=== PATIENT | female | born 1955 | race Caucasian/White ===

== ENCOUNTER → 2023-11-20 06:33 | Outpatient (REF) | payer MEDICARE, OTHER, SELFPAY ==
[2023-11-20] MEDS: LEXISCAN 0.400000000000000022 MG IV (08:40)
[2023-11-20] MEDS: FLUSH (NSS) 1 FLUSH IV (08:45)
== END ==
LOC: RCS 06:33
PROVIDERS: ATTENDING PHYSICIAN Internal Medicine Cardiovascular Disease; FAMILY PHYSICIAN Family Medicine
DX: R00.2 Palpitations (principal); R06.02 Shortness of breath; Z01.818 Encounter for other preprocedural examination
CPT/HCPCS: 78452; 93017; A9500; J2785

== ENCOUNTER → 2023-11-22 09:36 | Outpatient (REF) | payer MEDICARE, OTHER, SELFPAY | LOC: RAD 09:36 | PROVIDERS: ATTENDING PHYSICIAN Orthopaedic Surgery Hand Surgery; FAMILY PHYSICIAN Family Medicine | DX: M25.512 Pain in left shoulder (principal) | CPT/HCPCS: 76881 ==

== ENCOUNTER 2023-12-06 06:02 | Inpatient (IN) | payer MEDICARE, OTHER, SELFPAY ==
--- NOTE | 2023-11-01 11:14 | CM ---
Patient is scheduled for an elective L TKR on 12/06/23. Spoke with patient prior to surgery via telephone. Introduced role of Orthopedic Navigator. Patient reports that she lives with her in a multi story home. There are five steps to enter
and a flight of steps to the second floor. There is a powder room on the entry level manager. She currently functions independently and uses a cane. She also occasionally uses a rolling walker. She also has a shower seat. She has never had VN services. PCP
is Dr. Buenrostro.
Discussed orthopedic program and post surgical plans. Reviewed anticipated length of stay and that goal is for her to return home at discharge. Also reviewed outpatient PT. Patient is in agreement with tentative plan and will go directly to
outpatient PT at [facility]. She will have support from her when she goes home. She plans to stay on the first floor after surgery.
Patient will complete online education.
Plan: Orthopedic Navigator will remain available to assist with the care of patient and will reassess discharge needs after surgery.
[2023-11-13 13:59] VITALS: BMI 24.2
[2023-11-13 14:35] VITALS: BMI 24.2
[2023-11-13 14:35] LABS: Hematocrit 35.8 % (37.0-47.0); Hemoglobin 11.9 g/dL (12.0-16.0); Mean Corp Hgb Conc. 33.2 g/dL (33.0-37.0); Mean Corpuscular Hgb 29.5 pg (27.0-31.0); Mean Corpuscular Volume 88.8 fL (81.0-99.0); Mean Platelet Volume 10.8 fL (7.4-10.4); Platelet Count 258 10^3/uL (130-400); Red Blood Cell Count 4.03 10^6/uL (4.20-5.40); Red Cell Dist. Width 12.6 % (11.5-14.5); White Blood Cell Count 8.4 10^3/uL (4.8-10.8)
[2023-11-13 14:49] LABS: Glycohemoglobin (HgbA1c) 5.8 % (4.0-5.6)
[2023-11-13 14:55] LABS: ALT (SGPT) < 10 U/L (0-35); AST (SGOT) 20 U/L (14-36); Albumin 3.9 g/dl (3.5-5.0); Alkaline Phosphatase 62 U/L (38-126); Blood Urea Nitrogen 9 mg/dl (7-17); Calcium 9.5 mg/dl (8.4-10.2); Carbon Dioxide 29 mmol/L (22-30); Chloride 98 mmol/L (98-107); Estimated Creatinine Clearance 70 ml/min; Glucose 114 mg/dl (70-99); Potassium 4.2 mmol/L (3.5-5.1); Sodium 135 mmol/L (135-145); Total Bilirubin 0.3 mg/dl (0.2-1.3); Total Protein 6.3 g/dl (6.3-8.2); eGFR > 60.00
[2023-12-06] VITALS (16 sets, daily range): BP systolic 97–160; BP diastolic 44–93; PULSE 67; O2SAT 97; BMI 24.0
[2023-12-06] MEDS: CELEBREX 200 MG PO (06:32)
[2023-12-06] MEDS: TYLENOL 650 MG PO ×4 (06:32→20:48)
[2023-12-06] MEDS: NORMOSOL-R 1000 IV ×2 (06:35→10:53)
--- NOTE | 2023-12-06 09:22 | OR.RPT ---
Operative Report
Operative Report
Orthopaedic Surgery Operative Note
DATE OF OPERATION: 12/06/2023
PREOPERATIVE DIAGNOSES: Osteoarthritis, left knee.
POSTOPERATIVE DIAGNOSES: Osteoarthritis, left knee.
OPERATION PERFORMED: Left total knee arthroplasty.
SURGEON: Aaron Butterfield MD
ASSISTANTS: Le Campos PA-C who assisted with patient and limb positioning and retraction
ANESTHESIA: Spinal
COMPLICATIONS: None.
ESTIMATED BLOOD LOSS: 20mL
DRAINS: None
TOURNIQUET TIME: 44 minutes.
IMPLANTS:
- Moriah Persona CR Femur, size 7
- Moriah Persona tibia base plate, size C
- Moriah Persona ultracongruent articular surface, 10 mm
INDICATIONS: The patient presented to my office with debilitating left knee pain due to osteoarthritis. We reviewed the natural history of this problem, as well as the risks, benefits, and alternatives of various treatment options. The patient
exhausted all nonoperative treatment options and wished to proceed with knee replacement surgery. The patient understood the risks which included, but were not limited to, bleeding, infection, failure to relieve pain, more pain than preop, damage to
blood vessels and nerves, need for reoperation, mechanical failure of the implants, wound healing problems, stiffness, instability, blood clot, pulmonary embolism, myocardial infarction, pneumonia, arrhythmia, CVA, and . The patient accepted
these risks and wished to proceed. All questions were answered, and informed consent was obtained.
PROCEDURE IN DETAIL: The patient was identified in the preoperative holding area. The left knee was identified as the operative site. The patient was taken in the operating room and placed in a supine position on the operating table. Spinal
anesthesia was performed. IV antibiotics and tranexamic acid were administered. A bump was placed under the left hemipelvis. A well-padded tourniquet was placed on the proximal thigh. All bony prominences were well padded. The left lower extremity
was prepped and draped in the usual sterile fashion.
We performed a surgical time-out. An interarticular block was performed with local anesthetic with epinephrine. The limb was exsanguinated with an Esmarch bandage, then the tourniquet was inflated to 250 mmHg. A midline skin incision was made
followed by a medial parapatellar arthrotomy. A subperiosteal peel was performed on the medial tibia. I excised part of the infrapatellar fat pad to improve our visualization as well as tissue over anterior femur. The patella was everted and the
knee was flexed. I excised the remnants of the anterior and posterior cruciate ligaments as well as tibial and femoral osteophytes with rongeurs.
The knee was flexed, and the extramedullary tibial cutting guide was aligned. [place] was aligned at neutral, rotation was centered on the tibial tubercle, and coronal alignment was aligned with the mechanical axis of the tibia and center of the ankle
joint. The cut height was 10mm off the lateral tibia joint surface. The guide was secured into place. The MCL and LCL were protected. The tibia surface was cut. The cut surface was inspected after removal to ensure appropriate height and slope based
on the preoperative plan. The cut was checked with a drop heather. It was centered nicely at the ankle.
A drill was used to open the femoral canal. The intramedullary distal femoral cutting guide was inserted into the femur. This was set at 5 degrees +0. This was secured into place with three pins. The cut level was checked with an joel wing. The
distal femur was cut through the cutting guide. The IM guide was reinserted to double check that the level of resection was flush and in appropriate alignment.
[place]�s line and the transepicondylar axis were marked on the femur. The femoral sizing guide was applied to the anterior femur. Pins were inserted, and the 4-in-1 cutting guide was applied and secured into place. The rotation was compared to
[place]�s line, the transepicondylar axis, and the neutral tibia cut and was found to be appropriate. The width was checked and found to be appropriate and lateralized on the femur. The anterior, posterior, and chamfur cuts were made. A lamina
demo specialist was used to open the flexion gap, and posterior osteophytes were removed with a curved osteotome. The remnant medial and lateral meniscus were also removed. I prophylactically cauterized the lateral geniculate arteries. A 10mm spacer block
was applied to the flexion gap and was noted to be balanced medially and laterally. The knee was extended, and the block showed symmetric to extension and flexion gaps.
The tibia was exposed and sized. Rotation was set in line with the tibial tubercle and congruent with the femur. The trial was secured into place with two pins. The trial femur was impacted into place, and a trial articular surface was placed. The
knee was taken through range of motion and noted to be stable throughout the arc of motion without gaping or excess tension.The patella tracked centrally throughout the arc of motion without need for further releases. No patellar full thickness
cartilage defects.
The trials were removed. The tibia keel was prepared with the punch and the drill. The bone surfaces were irrigated with sterile saline and dried. The cement was mixed in a vacuum mixer. Cement gun was used to apply cement to the tibial surface and
the undersurface of the tibial implant. Cement was pressurized into the tibial canal and tibia surface. The tibial component was impacted into place. Excess cement was removed. Cement was applied to the femoral surface and the femoral component. The
femoral component was impacted into place, and excess cement removed. A trial articular surface was inserted, and the knee was extended while the cement polymerized. The tourniquet was let down, and meticulous hemostasis was achieved. Dilute
betadine was poured into the wound and allowed to soak for 3 minutes. The knee was irrigated with copious normal saline.
Once the cement was polymerized, the trial articular surface was removed. Any excess cement was removed. The knee was trialed, and the final articular surface was selected and inserted into the tibial locking mechanism. The knee was reduced. A fresh
drape was applied to the surgical field.
The arthrotomy was closed with 0-PDS. Once closed, an interarticular block was performed with local anesthetic with epi. The deep dermal layer was closed with 2-0 PDS, and the subcuticular skin was closed with 3-0 monocryl. A Dermabond Prineo
dressing was applied to the skin in full flexion. Once this was completely dry, a sterile waterproof dressing was applied.
The anesthesia team performed an adductor canal block in the OR. The patient awoke from anesthesia without any difficulties. The sponge and instrument counts were correct x2 at the end of the case.
Dev Butterfield MD
[2023-12-06] MEDS: MORPHINE SULFATE 1 MG IV (10:10)
[2023-12-06] MEDS: ZOFRAN 4 MG IV (10:24)
[2023-12-06] MEDS: ROXICODONE 5 MG PO (10:52)
--- NOTE | 2023-12-06 11:21 | CM ---
Addendum entered by Saundra Umanzor 12/06/23 11:27:
Patient's was given outpatient PT script.
Original Note:
Reviewed chart. Patient admitted as planned for elective L TKR. Met with patient and her at bedside. Confirmed information previously obtained for assessment. Also discussed discharge plans. The plan is for patient to return home at
discharge. She will have support from her when she goes home. Patient will go directly to outpatient PT and will come to . She has an appointment scheduled for Monday, 12/07.
Patient has a rolling walker, cane and shower seat.
She will use [facility] pharmacy for discharge prescriptions.
[2023-12-06] MEDS: NON-FORMULARY ITEM 3 CAP PO ×3 (11:28→20:43)
[2023-12-06] MEDS: ULTRAM 50 MG PO (12:19)
[2023-12-06] MEDS: ROXICODONE 10 MG PO (14:09)
[2023-12-06] MEDS: ANCEF 5 IV (14:09)
[2023-12-06] MEDS: ZOFRAN ODT (ORALLY DISINTEGRATING) 4 MG PO ×2 (14:09→17:29)
[2023-12-06] MEDS: ASPIRIN 325 MG PO (17:29)
[2023-12-06] MEDS: PEPCID 20 MG PO (18:14)
[2023-12-06] MEDS: EMLA CREAM 2 GRAM TOPICAL (18:14)
[2023-12-06] MEDS: BACTROBAN 2% OINTMENT 1 APPLIC NASAL (20:42)
[2023-12-06] MEDS: TORADOL 15 MG IV (20:44)
[2023-12-06] MEDS: FLUSH (NSS) 2 FLUSH IV (20:56)
[2023-12-06] MEDS: MAALOX 30 ML PO (21:24)
[2023-12-06] MEDS: PROTONIX 40 MG PO (21:41)
[2023-12-06] MEDS: ULTRAM PO (21:41)
[2023-12-06] MEDS: ZOFRAN ODT (ORALLY DISINTEGRATING) PO (21:41)
[2023-12-06] MEDS: ANCEF IV (23:17)
[2023-12-06] MEDS: TYLENOL PO (23:51)
[2023-12-06] MEDS: NON-FORMULARY ITEM PO (23:51)
[2023-12-07] VITALS (7 sets, daily range): BP systolic 81–137; BP diastolic 48–74; PULSE 63–80; O2SAT 97–99
[2023-12-07] MEDS: MAALOX 30 ML PO (01:39)
[2023-12-07] MEDS: NON-FORMULARY ITEM PO (03:30)
[2023-12-07] MEDS: TYLENOL PO (03:30)
[2023-12-07] MEDS: NON-FORMULARY ITEM 3 CAP PO ×2 (08:35→11:55)
[2023-12-07] MEDS: BACTROBAN 2% OINTMENT 1 APPLIC NASAL (08:38)
[2023-12-07] MEDS: TYLENOL 650 MG PO ×2 (08:38→11:44)
[2023-12-07] MEDS: ZOFRAN ODT (ORALLY DISINTEGRATING) 4 MG PO (08:39)
[2023-12-07] MEDS: TORADOL 15 MG IV (08:40)
[2023-12-07] MEDS: ASPIRIN PO (08:41)
[2023-12-07] MEDS: ULTRAM PO (08:43)
--- NOTE | 2023-12-07 09:37 | PTCARENOTE ---
0925: Sandra PALACIOS, made aware of patient refusing majority of AM medications including stool softeners, aspirin, dexamethasone, tramadol, and meloxicam. Education provided to patient on importance of medications. No new orders at this time. PA
into see patient.
--- NOTE | 2023-12-07 10:50 | PTCARENOTE ---
Pt with +orthostasis and symptomatic while working with OT this am. Madai Villar made aware. Care ongoing at this time.
--- NOTE | 2023-12-07 11:39 | CM ---
Reviewed chart and held rounds with PT, OT and nursing. Patient admitted as planned for elective L TKR. Met with patient and her at bedside. Confirmed information previously obtained for assessment. Also discussed discharge plans. The plan
is for patient to return home at discharge. She will have support from her when she goes home. Patient will go directly to outpatient PT and will come to . She has an appointment scheduled for Monday, 12/07.
Patient has a rolling walker, cane and shower seat.
She will use [facility] pharmacy for discharge prescriptions.
[2023-12-07] MEDS: ZOFRAN 4 MG IV (11:44)
[2023-12-07] MEDS: DECADRON 4 MG IV (11:44)
[2023-12-07] MEDS: LOVENOX 40 MG SC (11:44)
[2023-12-07] MEDS: ProAmatine 5 MG PO (11:45)
[2023-12-07] MEDS: PROTONIX IV 40 MG IV (11:45)
[2023-12-07] MEDS: NSS (PRESERVATIVE FREE) 10 ML IV (11:45)
[2023-12-07] MEDS: NORMOSOL-R 500 IV (12:07)
--- NOTE | 2023-12-07 13:11 | W.PN.ORTHO ---
Today's Communication / Plan
-
d/c
Assessment
.
Distal Motor Intact: Yes
Dressing:
Clean, dry and intact.
Assessment:
Medication non-compliance and agitation /confusion last pm-spoke to patient--now agreeing to adhere to medication regimen as advised
GERD-increase home Dexlansoprazole while on ASA
Nausea-improved w/ Zofran
Orthostasis-improved with Midodrine and IVF-minimize opioids
Plan
.
Surgery / Date: Jade Butterfield 12/06/23
DVT Prophylaxis: Aspirin
Activity:
Out of bed.
PT/OT
Discharge Plan: Home w/ Outpatient PT
Subjective
.
.:
Patient resting comfortably.
Vital Signs and Labs
.
Vital Signs and Labs:
Lab Results
11/13/23 13:50
11/13/23 13:50
Temp Pulse Resp BP Pulse Ox
97.7 F 76 17 96/59 97
12/07/23 11:20 12/07/23 11:20 12/07/23 11:20 12/07/23 11:20 12/07/23 11:20
Non-invasive Hgb result: 11.2
Physical Exam
-
HEENT: No pallor, cyanosis, or jaundice. Throat clear.
NECK: Supple. No JVD.
RESPIRATORY: Lungs clear to auscultation.
CVS: S1, S2 normal. RRR.� No murmur, rub or gallop.
ABDOMEN: Soft, non-tender. No distension. BS+/normal.
EXTREMITIES: strength equal, no calf pain with palpation
HIGH WORKER: AOx3. No focal deficits. nursing home manager grossly intact
--- NOTE | 2023-12-07 13:22 | W.DS.TRANS ---
DC Summary - File Clerk Data Entry
-
Discharge Instructions:
Sleep Apnea Risk Low
Discharge Diagnosis/Procedures L TKA Dr. Butterfield 12/06/23
Diet As tolerated
Activity With Walker
Driving Restrictions No driving
Bathing Restrictions OK to Shower
Other Services PT
Instructions:
Stand-Alone Forms: Total Hip/Knee Replacement D/C
Changes to Home Medications: Yes
Discharge Medications:
DC Medications w/original date entered in [facility]
carbidopa ER 23.75 mg-levodopa 95 mg capsule,extended release (Rytary) 3 cap PO Q4H parkinsons disease 03/26/20
conj estrogen-medroxyprogesterone 0.625 mg-2.5 mg tablet (Prempro) 1 ea PO HS Hormonal Agent 03/26/20
propranolol 10 mg tablet 10 mg PO DAILY PRN tachycardia 03/26/20
bntiena-zzncoyoggkzrt-znqvktws 250 mg-250 mg-65 mg tablet (Excedrin Migraine) 1 tab PO DAILY PRN migraines 05/08/23
calcium carbonate 600 mg-vitamin D3 20 mcg (800 unit) chewable tablet (Caltrate 600 plus D) 1 tab PO DAILY Supplement 11/07/23
magnesium citrate 100 mg tablet 100 mg PO HS supplement 11/07/23
mupirocin 2 % topical ointment 1 applic topical BID infection prevention #1 tube 11/13/23
acetaminophen 325 mg capsule (Tylenol) 650 mg (2 x 325 mg) PO QID #2 caps 12/07/23
aspirin 325 mg tablet 325 mg PO DAILY blood clot prevention #1 tab 12/07/23
dexlansoprazole 30 mg capsule,biphase delayed release 30 mg PO BID GERD #60 caps 12/07/23
docusate sodium 100 mg capsule (Colace) 100 mg PO BID stool softner #1 cap 12/07/23
gabapentin 100 mg capsule 100 mg PO HS si dysfunction/pain/sleep #0 caps 12/07/23
hydrocodone 5 mg-acetaminophen 325 mg tablet 1 tab PO Q6H PRN 1 tab moderate pain or 2 if severe #30 tabs 12/07/23
magnesium hydroxide 400 mg/5 mL oral suspension (Milk of Magnesia) 30 ml PO HS PRN Constipation #1 mL 12/07/23
meloxicam 15 mg tablet 15 mg PO DAILY anti-inflammatory #14 tabs 12/07/23
ondansetron 4 mg disintegrating tablet 4 mg PO Q6H PRN n/v #20 tabs 12/07/23
sennosides 8.6 mg tablet (Senokot) 17.2 mg (2 x 8.6 mg) PO BID laxative #2 tabs 12/07/23
Home Medication Changes
dexlansoprazole 30 mg capsule,biphase delayed release 30 mg PO BID GERD #60 caps 12/07/23
hydrocodone 5 mg-acetaminophen 325 mg tablet 1 tab PO Q6H PRN 1 tab moderate pain or 2 if severe #30 tabs 12/07/23
meloxicam 15 mg tablet 15 mg PO DAILY anti-inflammatory #14 tabs 12/07/23
ondansetron 4 mg disintegrating tablet 4 mg PO Q6H PRN n/v #20 tabs 12/07/23
Pending Results: No
[2023-12-07] MEDS: ZOFRAN ODT (ORALLY DISINTEGRATING) PO (14:21)
== END 2023-12-07 15:42 | disposition home or self-care (01) | DRG 470 ==
LOC: 2 SOUTH 06:02
PROVIDERS: ADMITTING PHYSICIAN Orthopaedic Surgery; FAMILY PHYSICIAN Family Medicine
PROC: 0SRD0J9 Replacement of Left Knee Joint with Synthetic Substitute, Cemented, Open Approach (ICD-10-PCS; 2023-12-06)
DX: M17.12 Unilateral primary osteoarthritis, left knee (principal); I47.10 Supraventricular tachycardia, unspecified; M85.80 Other specified disorders of bone density and structure, unspecified site; G20.A1 Parkinson's disease without dyskinesia, without mention of fluctuations; R91.8 Other nonspecific abnormal finding of lung field; K21.9 Gastro-esophageal reflux disease without esophagitis; G43.909 Migraine, unspecified, not intractable, without status migrainosus; R45.1 Restlessness and agitation; R11.0 Nausea; Z88.1 Allergy status to other antibiotic agents; Z88.0 Allergy status to penicillin; Z91.148 Patient's other noncompliance with medication regimen for other reason; Z87.11 Personal history of peptic ulcer disease
CPT/HCPCS: 36415; 73560; 80053; 83036; 85027; 86850; 86900; 86901; 87070; 97110; 97116; 97162; 97166; 97530; 97535; C1713; C1776

== ENCOUNTER 2024-01-09 13:26 | Outpatient (RCR) | payer MEDICARE, OTHER, SELFPAY | END 2024-01-09 23:59 | disposition home or self-care (01) | LOC: RPT 13:26 | PROVIDERS: ATTENDING PHYSICIAN Orthopaedic Surgery Hand Surgery; FAMILY PHYSICIAN Family Medicine | DX: R26.89 Other abnormalities of gait and mobility (principal); Z96.652 Presence of left artificial knee joint; Z73.6 Limitation of activities due to disability | CPT/HCPCS: 97010; 97110; 97140; 97162; 97164 ==

== ENCOUNTER 2024-02-02 13:20 | Outpatient (RCR) | payer MEDICARE, OTHER, SELFPAY | END 2024-02-02 23:59 | disposition home or self-care (01) | LOC: RPT 13:20 | PROVIDERS: ATTENDING PHYSICIAN Orthopaedic Surgery Hand Surgery; FAMILY PHYSICIAN Family Medicine | DX: M75.112 Incomplete rotator cuff tear or rupture of left shoulder, not specified as traumatic (principal); M75.42 Impingement syndrome of left shoulder; M25.562 Pain in left knee; Z73.6 Limitation of activities due to disability | CPT/HCPCS: 97010; 97110; 97140 ==

== ENCOUNTER 2024-02-03 13:12 | Emergency (ER) | payer MEDICARE, OTHER, SELFPAY ==
[2024-02-03 13:18] VITALS: BP 122/74
--- NOTE | 2024-02-03 14:57 | ED.GENMED ---
History of Present Illness
General
Chief Complaint: Headache
Source: patient and previous radiology exam
Exam Limitations: none
Time Seen by Provider: 02/03/24 14:41
Nursing documentation reviewed up to this point in time: agreed with
Travel History
Have you had any contact with someone who has COVID-19?: No
Do you have any symptoms of coronavirus? Fever > 100 degrees, chills, cough, shortness of breath, sore throat, loss of taste or smell, muscle aches, or headache?: No
History of Present Illness
History of Present Illness:
68-year-old female Parkinson's deep brain stimulator placed [facility] painful swelling area in her left posterior neck saw her PCP yesterday total was a lymph node somewhat more painful today, no fever she has had chills,
states she feels a bit off, somewhat disoriented, she is worried there could be an issue with her deep brain stimulator was told to come in if she ever has any issues no chest pain or shortness of breath, no sore throat no other lymph node swelling
Past History
Past History
ED Past Medical History: Other (Parkinson's disease, deep brain stimulator)
ED Past Surgical History: Brain
Social History
Tobacco: Non-smoker
Alcohol: None
Drug: None
Living: with family
Employment: Retired
Review of Systems
Review of Systems
All Other Systems: Not applicable
Constitutional: Reports fatigue and chills; Denies fever
EENT: Reports no symptoms
Respiratory: Reports no symptoms
Cardiac: Reports no symptoms
ABD/GI: Reports no symptoms
: Reports no symptoms
Musculoskeletal: Reports no symptoms
Skin: Reports other (Lymph node swelling)
Neurological: Denies dizzy, headache or numbness
Psychiatric: Reports no symptoms
Phy Exam
Physical Exam
Physical Exam:
Physical Exam
General: no apparent distress, not acutely ill
Neck: Minimally tender nodes in the left occipital region
Heart: s1/s2 regular rate and rhythm, no murmur. equal radial pulses.
Lungs: no acute respiratory distress. clear bilaterally
Abdomen: Nontender
Neuro: alert and oriented. no focal neurological deficits
Skin: no rash
Psychiatric: well kept. interactive and cooperative
Extremities: no edema.
Course
Orders/Labs/Results
Orders:
Orders
02/03/24 14:53
IV Insert/Care/Rem.- Treatment PRN
02/03/24 14:54
CT Head W/o Iv Contrast Urgent
Comment:
Reason For Exam: REA DBS
02/03/24 15:09
COVID-19 Antigen Urgent
Source: Nasal Swab
Complete Blood Count/With Diff Urgent
Comprehensive Metabolic Panel Urgent
Influenza A+B Rapid Molecular Urgent
WHIT Source: Nasal Swab
Specimen Description:
Abnormal Lab Results
02/03/24
15:09
RBC 4.18 L 10^6/uL
(4.20-5.40)
MCHC 32.2 L g/dL
(33.0-37.0)
Creatinine 0.4 L mg/dL
(0.6-1.0)
Glucose 101 H mg/dl
(70-99)
02/03/24 15:09
02/03/24 15:09
Vital Signs
Initial and Last Documented VS:
Initial Vital Signs
Temp Pulse Resp BP Pulse Ox
97.6 F 80 16 122/74 98
02/03/24 13:18 02/03/24 13:18 02/03/24 13:18 02/03/24 13:18 02/03/24 13:18
Last Documented Vital Signs
Temp Pulse Resp BP Pulse Ox
97.6 F 80 16 122/74 98
02/03/24 13:18 02/03/24 13:18 02/03/24 13:18 02/03/24 13:18 02/03/24 13:18
MDM/Problems Addressed
Differential Diagnosis Includes:
Viral syndrome, lymphadenopathy, lymphadenitis, doubt any issue with her DBS
MDM/Problems Addressed:
Lymph node tenderness
Chronic conditions affecting care:
Parkinson's
Acute Exacerbation and/or Progression of Chronic Illness:
Chills
*Radiology
Radiology exam reviewed: preliminary read by ED provider
*Pulse Oximetry
Patient hypoxic: no
*Critical Care Note
Total Time (30-74mins, 75-104mins- exclusive of procedures): Not Applicable
Update Note
Update Note:
Update labs CT unremarkable
ED Attending Note
-
Portions of this chart may have been created with voice recognition software.� Occasional wrong word or��sound alike� substitutions may have occurred due to the inherent limitations of voice recognition software.
Discharge Plan
Departure
Patient Disposition: Home (Routine Discharge)
Date of Disposition: 02/03/24
Time of Disposition: 15:59
Patient with high blood pressure during this ER visit?: No
Condition: Good
Discharge Problem:
Glands swollen
Instructions: Lymphadenitis
Prescriptions:
New
doxycycline hyclate 100 mg tablet
100 mg PO BID Qty: 14 0RF
No Action
propranolol 10 MG tablet
10 mg PO DAILY PRN (Reason: tachycardia)
Prempro 1 EACH tablet
1 ea PO HS
Rytary 1 EACH capsule, extended release
3 cap PO Q4H
Excedrin Migraine 250-250-65 mg Tablet
1 tab PO DAILY PRN (Reason: migraines)
magnesium citrate 100 mg Tablet
100 mg PO HS
Caltrate 600 plus D 600 mg-20 mcg (800 unit) Tablet,Chewable
1 tab PO DAILY
mupirocin 2 % ointment
1 applic topical BID Qty: 1 0RF
Patient Comments:
Patient administered this morning 12/06/23 @ 04:45. Patien started this medication on 12/04/23 in the evening.
sennosides [Senokot] 8.6 mg tablet
17.2 mg PO BID Qty: 2 0RF
aspirin 325 mg tablet
325 mg PO DAILY Qty: 1 0RF
Rx Instructions:
Take with food
hydrocodone-acetaminophen 5-325 mg tablet
1 tab PO Q6H PRN (Reason: 1 tab moderate pain or 2 if severe) Qty: 30 0RF
Rx Instructions:
Dx orthopedic surgery
ongoing therapy
meloxicam 15 mg tablet
15 mg PO DAILY Qty: 14 0RF
Rx Instructions:
take with food
post-op
magnesium hydroxide [Milk of Magnesia] 400 mg/5 mL suspension
30 ml PO HS PRN (Reason: Constipation) Qty: 1 0RF
docusate sodium [Colace] 100 mg capsule
100 mg PO BID Qty: 1 0RF
ondansetron 4 mg tablet,disintegrating
4 mg PO Q6H PRN (Reason: n/v) Qty: 20 0RF
Rx Instructions:
take 1/2h b/f pain med if recurrent nausea
allow to dissolve in mouth w/o water
acetaminophen [Tylenol] 325 mg capsule
650 mg PO QID Qty: 2 0RF
gabapentin 100 mg Capsule
100 mg PO HS Qty: 0 0RF
dexlansoprazole 30 mg Capsule,Biphase Delayed Releas
30 mg PO BID Qty: 60 0RF
Rx Instructions:
take twice daily while on ASA
Referrals:
James Major MD [Family Provider] - Next open appointment
Interventions
Interventions:
*Risk Screen - Suicide Last Done: 02/03/24 13:18
*General Assessment Last Done: 02/03/24 13:18
*Neglect/Abuse Screening Last Done: 02/03/24 13:18
ED- Fall Risk Assessment Last Done: 02/03/24 15:17
*ED COVID-19 Vaccine History Last Done: 02/03/24 15:16
ED- Neurological Assessment Last Done: 02/03/24 15:17
Discharge Date and Time
Print Language: [place]
[2024-02-03 15:15] VITALS: BMI 21.9
[2024-02-03 15:22] LABS: % Basophils 0.4 % (0-2); % Immature Granulocytes 0.3 % (0-0.5); % Monocytes 6.9 % (1.7-9.3); % Neutrophils 62.4 % (42.2-75.2); Absolute Eosinophils 0.1 10^3/uL (0-0.7); Absolute Lymphocytes 2.2 10^3/uL (1.2-3.4); Absolute Monocytes 0.5 10^3/uL (0.1-0.6); Absolute Neutrophils 4.8 10^3/uL (1.4-6.5); Hematocrit 38.5 % (37.0-47.0); Hemoglobin 12.4 g/dL (12.0-16.0); Mean Corp Hgb Conc. 32.2 g/dL (33.0-37.0); Mean Corpuscular Hgb 29.7 pg (27.0-31.0); Mean Corpuscular Volume 92.1 fL (81.0-99.0); Mean Platelet Volume 10.1 fL (7.4-10.4); Nucleated Red Blood Cells % 0 %; Platelet Count 220 10^3/uL (130-400); Red Blood Cell Count 4.18 10^6/uL (4.20-5.40); Red Cell Dist. Width 13.2 % (11.5-14.5); White Blood Cell Count 7.7 10^3/uL (4.8-10.8)
[2024-02-03 15:36] LABS: COVID-19 Antigen Negative (Negative)
[2024-02-03 15:44] LABS: ALT (SGPT) < 10 U/L (0-35); AST (SGOT) 27 U/L (14-36); Alkaline Phosphatase 53 U/L (38-126); Blood Urea Nitrogen 12 mg/dl (7-17); Calcium 9.3 mg/dl (8.4-10.2); Carbon Dioxide 28 mmol/L (22-30); Chloride 102 mmol/L (98-107); Estimated Creatinine Clearance 71 ml/min; Glucose 101 mg/dl (70-99); Potassium 4.3 mmol/L (3.5-5.1); Sodium 135 mmol/L (135-145); Total Bilirubin 0.5 mg/dl (0.2-1.3); Total Protein 6.5 g/dl (6.3-8.2); eGFR > 60.00
[2024-02-03] MEDS: TYLENOL 650 MG PO (16:15)
[2024-02-03] MEDS: VIBRAMYCIN 100 MG PO (16:15)
[2024-02-03 16:41] VITALS: BP 124/72
== END 2024-02-03 16:42 | disposition home or self-care (01) ==
LOC: EMR 13:12
PROVIDERS: EMERGENCY PHYSICIAN Emergency Medicine; FAMILY PHYSICIAN Family Medicine
DX: M54.2 Cervicalgia (principal); R59.9 Enlarged lymph nodes, unspecified; R53.83 Other fatigue; R41.0 Disorientation, unspecified; R51.9 Headache, unspecified; R68.83 Chills (without fever); Z11.52 Encounter for screening for COVID-19; G20.A1 Parkinson's disease without dyskinesia, without mention of fluctuations; M19.90 Unspecified osteoarthritis, unspecified site; Z96.82 Presence of neurostimulator; Z86.73 Personal history of transient ischemic attack (TIA), and cerebral infarction without residual deficits; Z79.82 Long term (current) use of aspirin; Z88.1 Allergy status to other antibiotic agents
CPT/HCPCS: 99284; 70450; 80053; 85025; 87502; 87811

== ENCOUNTER 2024-02-26 10:06 | Outpatient (RCR) | payer MEDICARE, OTHER, SELFPAY | END 2024-02-26 23:59 | disposition home or self-care (01) | LOC: RPT 10:06 | PROVIDERS: ATTENDING PHYSICIAN Orthopaedic Surgery; FAMILY PHYSICIAN Family Medicine | DX: Z47.1 Aftercare following joint replacement surgery (principal); Z96.652 Presence of left artificial knee joint; M75.112 Incomplete rotator cuff tear or rupture of left shoulder, not specified as traumatic; M75.42 Impingement syndrome of left shoulder; Z73.6 Limitation of activities due to disability; R26.89 Other abnormalities of gait and mobility | CPT/HCPCS: 97010; 97110 ==

== ENCOUNTER → 2024-03-27 15:03 | Outpatient (REF) | payer MEDICARE, OTHER, SELFPAY ==
[2024-03-27 16:34] LABS: Erythrocyte Sed Rate 9 mm/hour (0-20)
== END ==
LOC: REG 15:03
PROVIDERS: ATTENDING PHYSICIAN Student in an Organized Health Care Education/Training Program; FAMILY PHYSICIAN Family Medicine
DX: M25.562 Pain in left knee (principal)
CPT/HCPCS: 36415; 85652; 86140

== ENCOUNTER → 2024-04-03 09:56 | Outpatient (REF) | payer MEDICARE, OTHER, SELFPAY | LOC: RAD 09:56 | PROVIDERS: ATTENDING PHYSICIAN Orthopaedic Surgery; FAMILY PHYSICIAN Family Medicine | DX: Z96.659 Presence of unspecified artificial knee joint (principal); M25.562 Pain in left knee | CPT/HCPCS: 76881 ==

== ENCOUNTER 2024-04-24 11:57 | Outpatient (RCR) | payer MEDICARE, OTHER, SELFPAY | END 2024-04-24 23:59 | disposition home or self-care (01) | LOC: RPT 11:57 | PROVIDERS: ATTENDING PHYSICIAN Family Medicine | DX: H81.10 Benign paroxysmal vertigo, unspecified ear (principal); Z73.6 Limitation of activities due to disability | CPT/HCPCS: 97162 ==

== ENCOUNTER 2024-06-18 07:49 | Outpatient (RCR) | payer MEDICARE, OTHER, SELFPAY | END 2024-06-18 23:59 | disposition home or self-care (01) | LOC: RPT 07:49 | PROVIDERS: ATTENDING PHYSICIAN Family Medicine | DX: H81.10 Benign paroxysmal vertigo, unspecified ear (principal); Z73.6 Limitation of activities due to disability | CPT/HCPCS: 97112 ==

== ENCOUNTER 2024-07-17 16:36 | Outpatient (RCR) | payer MEDICARE, OTHER, SELFPAY | END 2024-07-17 23:59 | disposition home or self-care (01) | LOC: ROT 16:36 | PROVIDERS: ATTENDING PHYSICIAN Orthopaedic Surgery Hand Surgery; FAMILY PHYSICIAN Family Medicine | DX: M79.642 Pain in left hand (principal); Z73.6 Limitation of activities due to disability | CPT/HCPCS: 97760 ==

== ENCOUNTER → 2025-05-13 07:32 | Outpatient (REF) | payer MEDICARE, OTHER, SELFPAY | LOC: RAD 07:32 | PROVIDERS: ATTENDING PHYSICIAN Internal Medicine Gastroenterology; FAMILY PHYSICIAN Family Medicine; OTHER PHYSICIAN Psychiatry & Neurology Neurology | DX: R11.0 Nausea (principal) | CPT/HCPCS: 78264; A9541 ==

== ENCOUNTER 2025-08-20 07:58 | Emergency (ER) | payer MEDICARE, OTHER, SELFPAY ==
[2025-08-20 08:01] VITALS: BP 141/62
--- NOTE | 2025-08-20 10:28 | ED.GENMED ---
History of Present Illness
General
Chief Complaint: Bowel Problem
Source: patient
Exam Limitations: none
Time Seen by Provider: 08/20/25 09:55
Nursing documentation reviewed up to this point in time: agreed with
History of Present Illness
History of Present Illness:
Patient is a 70-year-old female with history of Parkinson's disease who presents to the emergency department for evaluation of pale stools. Patient states that she struggles with chronic constipation due to her Parkinson's. She typically uses a
Fleet enema once per week at home. She states that earlier this week she was dealing with significant constipation which was not relieved by her typical Fleet enema. She then states that yesterday she was able to have a very small bowel movement
however only notes 'a few nevaeh of stool that were white in color'. She states that she typed her symptoms into '[facility]' which told her to come to the emergency department.
Patient denies any fever or chills. No abdominal pain. No urinary symptoms.
Patient states that she does struggle with chronic SI joint pain and takes Tylenol daily. She states she takes 500 mg up to 3 times daily.
Past History
Past History
ED Past Medical History: Other (Parkinson's disease, deep brain stimulator)
ED Past Surgical History: Brain
Social History
Tobacco: Non-smoker
Alcohol: None
Drug: None
Living: with family
Employment: Retired
Review of Systems
Review of Systems
Allergies reviewed?: Yes
All Other Systems: ROS reviewed and negative except as documented in HPI and ROS
Phy Exam
Physical Exam
Physical Exam:
Vitals: Mildly hypertensive, otherwise vital signs stable. Afebrile
General: Patient is well appearing, no acute distress
Skin: Warm and dry, no rashes or lesions
Head: Normocephalic, atraumatic
Eyes: Sclera nonicteric.
Throat: Protecting airway
Neck: Normal ROM, no cervical spine tenderness, no meningismus
Cardiac: Regular rate and rhythm, no murmurs.
Pulm: Normal respiratory effort. Lungs clear bilaterally
Abdomen: Abdomen soft and nontender.
Extremities: No evidence of cyanosis or edema
Neuro: AAOx3. Grossly intact
Psychiatric: Normal affect.
Course
Orders/Labs/Results
Orders:
Orders
08/20/25 10:24
Enema- Treatment ONCE
Type: Milk of Molasses
Obstruct Series W/PA Chest [CR Obstruct Series W/pa Chest] Urgent
Comment:
Reason For Exam: constipation
08/20/25 10:42
Complete Blood Count/With Diff Urgent
Comprehensive Metabolic Panel Urgent
Lipase Urgent
Abnormal Lab Results
08/20/25
10:42
RBC 4.04 L 10^6/uL
(4.20-5.40)
Hgb 11.9 L g/dL
(12.0-16.0)
Hct 36.4 L %
(37.0-47.0)
MCHC 32.7 L g/dL
(33.0-37.0)
MPV 10.6 H fL
(7.4-10.4)
Creatinine 0.5 L mg/dL
(0.6-1.0)
08/20/25 10:42
08/20/25 10:42
Vital Signs
Initial and Last Documented VS:
Initial Vital Signs
Temp Pulse Resp BP Pulse Ox
97.5 F 74 16 141/62 98
08/20/25 08:01 08/20/25 08:01 08/20/25 08:01 08/20/25 08:01 08/20/25 08:01
Last Documented Vital Signs
Temp Pulse Resp BP Pulse Ox
97.5 F 79 20 104/74 99
08/20/25 08:01 08/20/25 13:30 08/20/25 13:30 08/20/25 13:30 08/20/25 13:30
MDM/Problems Addressed
Differential Diagnosis Includes:
Not limited to: Constipation, bowel obstruction, pancreatitis, acute dehydration, progression of disease, etc.
MDM/Problems Addressed:
70-year-old female with acute on chronic constipation. History Parkinson�s disease. Did notice pale colored stool prompting visit to ED. No abdominal pain or fevers. No vomiting. Vitals and physical exam as above. Patient very well appearing, and in
no distress. Abdomen benign.
Basic labs, including CBC and chemistry panel without acute abnormalities. Liver function tests normal. Normal lipase. Do not suspect acute hepatic or pancreatic dysfunction and no pain to suggest biliary obstructive process. Patient is afebrile
with benign abdominal exam - do not suspect infectious process.
Obstruction series shows constipation without evidence of bowel obstruction.
Impression is acute on chronic constipation likely secondary to Parkinsons. Patient did receive an enema in emergency department and had a small bowel movement. The nurse states it appeared to have a normal color -not pale or white.
She did have a near vagal episode while having bowel movement however, she now feels much better and comfortable with discharge home. Return precautions discussed.
Chronic conditions affecting care:
Parkinson's
Acute Exacerbation and/or Progression of Chronic Illness:
Acute on chronic constipation
*Radiology
Radiology exam reviewed: radiology read reviewed
*Pulse Oximetry
SaO2: 98
Oxygen Mode of Delivery: Room air
Patient hypoxic: no
*EKG
Interpreted by ED Provider?: NA
*Mixing Machine Attendant Interpretation
Rate: Mixing Machine Attendant- N/A
*Critical Care Note
Total Time (30-74mins, 75-104mins- exclusive of procedures): Not Applicable
ED Attending Note
-
Portions of this chart may have been created with voice recognition software.� Occasional wrong word or��sound alike� substitutions may have occurred due to the inherent limitations of voice recognition software.
Discharge Plan
Departure
Patient Disposition: Home (Routine Discharge)
Date of Disposition: 08/20/25
Time of Disposition: 13:39
Patient with high blood pressure during this ER visit?: Yes
Discharge Problem:
Constipation
Instructions: Constipation, Adult (DC), BLOOD PRESSURE
Prescriptions:
No Action
propranolol 10 MG tablet
10 mg PO DAILY PRN (Reason: tachycardia)
Prempro 1 EACH tablet
1 ea PO HS
Rytary 1 EACH capsule, extended release
3 cap PO Q4H
Excedrin Migraine 250-250-65 mg Tablet
1 tab PO DAILY PRN (Reason: migraines)
magnesium citrate 100 mg Tablet
100 mg PO HS
Caltrate 600 plus D 600 mg-20 mcg (800 unit) Tablet,Chewable
1 tab PO DAILY
mupirocin 2 % ointment
1 applic topical BID Qty: 1 0RF
Patient Comments:
Patient administered this morning 12/06/23 @ 04:45. Evan started this medication on 12/04/23 in the evening.
sennosides [Senokot] 8.6 mg tablet
17.2 mg PO BID Qty: 2 0RF
aspirin 325 mg tablet
325 mg PO DAILY Qty: 1 0RF
Rx Instructions:
Take with food
hydrocodone-acetaminophen 5-325 mg tablet
1 tab PO Q6H PRN (Reason: 1 tab moderate pain or 2 if severe) Qty: 30 0RF
Rx Instructions:
Dx orthopedic surgery
ongoing therapy
meloxicam 15 mg tablet
15 mg PO DAILY Qty: 14 0RF
Rx Instructions:
take with food
post-op
magnesium hydroxide [Milk of Magnesia] 400 mg/5 mL suspension
30 ml PO HS PRN (Reason: Constipation) Qty: 1 0RF
docusate sodium [Colace] 100 mg capsule
100 mg PO BID Qty: 1 0RF
ondansetron 4 mg tablet,disintegrating
4 mg PO Q6H PRN (Reason: n/v) Qty: 20 0RF
Rx Instructions:
take 1/2h b/f pain med if recurrent nausea
allow to dissolve in mouth w/o water
acetaminophen [Tylenol] 325 mg capsule
650 mg PO QID Qty: 2 0RF
gabapentin 100 mg Capsule
100 mg PO HS Qty: 0 0RF
dexlansoprazole 30 mg Capsule,Biphase Delayed Releas
30 mg PO BID Qty: 60 0RF
Rx Instructions:
take twice daily while on ASA
doxycycline hyclate 100 mg tablet
100 mg PO BID Qty: 14 0RF
Referrals:
James Major MD [Family Provider, [facility]]
Activity Restrictions/Additional Instructions:
RETURN TO THE EMERGENCY DEPARTMENT WITH ANY FEVER, ABDOMINAL PAIN, INTRACTABLE VOMITING, LIGHTHEADEDNESS/DIZZINESS OR EPISODES OF FAINTING, WORSENING IN CURRENT SYMPTOMS, OR ANY OTHER CONCERNS
- As discussed�your lab work showed no acute abnormalities today in the emergency department. Your liver function test were normal. Your lipase was normal.
- You were given an enema in the emergency department today.
- Please continue to stay well-hydrated. I would recommend a diet high in fiber.
- Continue to follow-up with your GI physician for further evaluation and/for management of chronic constipation
Monitor your symptoms closely and return to the emergency department with any acute worsening/new symptoms or any other concerns
Interventions
Interventions:
*Risk Screen - Suicide Last Done: 08/20/25 08:01
*General Assessment Last Done: 08/20/25 08:01
*Neglect/Abuse Screening Last Done: 08/20/25 08:01
*ED COVID-19 Vaccine History Last Done: 08/20/25 08:01
*ED Influenza Vaccine History Last Done: 08/20/25 08:01
[facility] Risk Assessment Tool Last Done: 08/20/25 12:00
*Nursing Disposition Last Done: 08/20/25 13:45
RH-Rrtfjx-Hlpxrpctcx Assessment Last Done: 08/20/25 12:00
Discharge Date and Time
Discharge Date/Time: 08/20/25 14:08
Print Language: SWAZI
[2025-08-20 11:02] LABS: Hematocrit 36.4 % (37.0-47.0); Hemoglobin 11.9 g/dL (12.0-16.0); Mean Corp Hgb Conc. 32.7 g/dL (33.0-37.0); Mean Corpuscular Volume 90.1 fL (81.0-99.0); Nucleated Red Blood Cells % 0 %; Platelet Count 212 10^3/uL (130-400); Red Cell Dist. Width 13.7 % (11.5-14.5)
[2025-08-20 11:22] LABS: ALT (SGPT) < 10 U/L (0-35); AST (SGOT) 18 U/L (14-36); Albumin 3.9 g/dl (3.5-5.0); Alkaline Phosphatase 60 U/L (38-126); Blood Urea Nitrogen 8 mg/dl (7-17); Calcium 8.7 mg/dl (8.4-10.2); Carbon Dioxide 29 mmol/L (22-30); Chloride 104 mmol/L (98-107); Glucose 91 mg/dl (70-99); Lipase 68 U/L (23-300); Potassium 4.0 mmol/L (3.5-5.1); Sodium 136 mmol/L (135-145); Total Protein 6.3 g/dl (6.3-8.2); eGFR > 60.00
[2025-08-20 13:00] VITALS: BP 119/39
[2025-08-20 13:30] VITALS: BP 104/74
== END 2025-08-20 14:08 | disposition home or self-care (01) ==
LOC: EMR 07:58
PROVIDERS: Physician Assistant; EMERGENCY PHYSICIAN Emergency Medicine; FAMILY PHYSICIAN Family Medicine
DX: K59.09 Other constipation (principal); G20.A1 Parkinson's disease without dyskinesia, without mention of fluctuations; M53.3 Sacrococcygeal disorders, not elsewhere classified
CPT/HCPCS: 99284; 74022; 80053; 83690; 85025